=== PATIENT | male | born 1975 | race African-American/Black ===

== ENCOUNTER 2020-01-05 11:07 | Emergency (ER) | payer MEDICAID ==
[~2020-01-05] VITALS: Ht 172.7 cm; Wt 109.5 kg
[~2020-01-05 11:07] MED LIST: ALBU8.5H5 INH; AMIT50TA PO; ASPI-515 PO; DOXY100C15 PO; ERGO500047 PO; FLUT12AE INH; GABA600T7 PO; LISI-167 PO; METO50TA4 PO; OMEGA PO; PANT40TA6 PO; PRAV20TA2 PO; SERT50TA28 PO
[2020-01-05 11:18] VITALS: BP 164/95
[2020-01-05 12:09] LABS: BASOPHILS % (AUTO) 1 % (0-1); EOSINOPHILS % (AUTO) 1 % (1-7); LYMPHOCYTES % (AUTO) 23 % (22-44); MEAN CORPUSCULAR HEMOGLOBIN 32.2 pg (27.5-34.5); MEAN CORPUSCULAR HGB CONC 33.2 g/dL (33.2-36.2); MEAN PLATELET VOLUME 9.7 fL (7.4-10.4); MONOCYTES % (AUTO) 10 % (2-9); NEUTROPHILS % (AUTO) 66 % (42-75); PLATELET COUNT 331 x10^3/uL (130-400); RED BLOOD COUNT 4.66 x10^6/uL (4.38-5.82)
[2020-01-05 12:16] LABS: ALANINE AMINOTRANSFERASE 30 U/L (12-78); ALBUMIN 3.8 g/dL (3.4-5.0); ANION GAP 6 mmol/L (5-15); CALCIUM 8.9 mg/dL (8.5-10.1); CHLORIDE 108 mmol/L (98-107); CREATININE 0.96 mg/dL (0.7-1.3); MD NO
[2020-01-05 12:19] LABS: ALKALINE PHOSPHATASE 111 U/L (45-117); BILIRUBIN,TOTAL 0.5 mg/dL (0.2-1.0); TOTAL PROTEIN 8.1 g/dL (6.4-8.2)
--- NOTE | 2020-01-05 12:56 | NUR ---
pt to rm from lobby
[2020-01-05] MEDS ORDERED: COLCHICINE 0.6 MG CAPSULE ONE (13:27)
[2020-01-05] MEDS ORDERED: HYDROcodone/APAP 5/325 TABLET PO ONE (13:30)
[2020-01-05] MEDS ORDERED: ONDANSETRON ODT 4 MG PO ONE (13:30)
[2020-01-05] MEDS ORDERED: COLCHICINE 0.6 MG CAPSULE PO ONE (13:30)
== END 2020-01-05 13:32 | disposition home or self-care (01) ==
LOC: ED 13:00
DX: M10.032 Idiopathic gout, left wrist (principal); E78.5 Hyperlipidemia, unspecified; I25.10 Atherosclerotic heart disease of native coronary artery without angina pectoris; I10 Essential (primary) hypertension; Z88.0 Allergy status to penicillin
CPT/HCPCS: 29125; 36415; 80053; 84550; 85025; 99284